=== PATIENT | female | born 1935 | race Caucasian/White ===

== ENCOUNTER 2017-09-09 09:59 | Outpatient (CLI) | payer MEDICARE, OTHER | END 2017-09-09 10:00 | disposition home or self-care (01) | LOC: BICMAMMO 09:59 | PROVIDERS: ATTEND Family Medicine | DX: Z12.31 Encounter for screening mammogram for malignant neoplasm of breast (principal) | CPT/HCPCS: 77063; 77067 ==

== ENCOUNTER 2018-04-25 11:53 | Outpatient (CLI) | payer MEDICARE ==
[2018-04-25 13:22] LABS: #Eosinphils 0.1 thou/uL (0.0-0.7); #Lymphocytes 1.6 thou/uL (1.20-3.40); #Monocytes 0.4 thou/uL (0.11-0.59); #Neutrophils 2.6 thou/uL (1.40-6.50); %Eosinophils 2.1 % (0.0-10.0); %Lymphocytes 33.5 % (21.0-51.0); %Monocytes 8.2 % (0.0-10.0); %Neutrophils 55.2 % (42.0-75.0); Hemoglobin 13.3 g/dL (12.0-16.0); Mean Corpuscular HGB CONC 33.4 g/dL (32.0-36.0); Mean Corpuscular Hemoglobin 30.9 pg (27.0-31.0); Mean Corpuscular Volume 92.5 fL (78.0-98.0); Platelet Count 222 thou/uL (130-400); RBC Distribution Width 11.7 % (11.5-14.5); Red Blood Cell (RBC) Count 4.29 mill/uL (4.20-5.40); White Blood Cell (WBC) Count 4.7 thou/uL (4.8-10.8)
--- NOTE | 2018-04-25 17:19 | EKG ---
Test Reason : Blood Pressure : / mmHG Vent. Rate : 068 BPM Atrial Rate : 068 BPM P-R Int : 172 ms QRS Dur : 084 ms QT Int : 410 ms P-R-T Axes : 081 079 057 degrees QTc Int : 435 ms Normal sinus rhythm Normal ECG No previous ECGs available Confirmed by MELITON GOULD, DR. Chapman ([id number]) on 04/25/2018 5:19:46 PM Referred By: DAISY Confirmed By:DR. Adela COELHO MD
== END 2018-04-25 11:54 | disposition home or self-care (01) ==
LOC: LABBT 11:53
PROVIDERS: ATTEND Orthopaedic Surgery Hand Surgery
DX: Z01.818 Encounter for other preprocedural examination (principal); M67.442 Ganglion, left hand
CPT/HCPCS: 85025; 93005; 93010

== ENCOUNTER 2018-05-02 06:30 | Day surgery (SDC) | payer MEDICARE ==
[2018-04-25 12:17] VITALS: BMI 25.2
[2018-05-02] MEDS ORDERED: CEFAZOLIN 2 GM/50 ML BAG ONE (07:31)
[2018-05-02] MEDS ORDERED: Bacitracin Zinc Ointment 30 gm TUBE ONE (08:30)
[2018-05-02] MEDS ORDERED: Betamet Acet/Betamet Na Ph 30 MG/5 ML VIAL ONE (08:30)
[2018-05-02] MEDS ORDERED: Bupivacaine PF 0.5% 30 ML VIAL ONE (08:30)
[2018-05-02] MEDS ORDERED: Sodium Chloride 0.9% 10 ML ONE (08:31)
[2018-05-02] MEDS ORDERED: Fentanyl 100 MCG/2 ML VIAL ONE (08:39)
[2018-05-02] MEDS ORDERED: ePHEDrine/0.9% NaCl/PF SYRINGE 50 mg/10 ml ONE (15:47)
[2018-05-02] MEDS ORDERED: Lidocaine 1% PF 5 ML VIAL ONE (15:47)
[2018-05-02] MEDS ORDERED: Ondansetron PF 4 MG/2 ML Vial ONE (15:47)
[2018-05-02] MEDS ORDERED: PROPOFOL 200 MG/20 ML VIAL ONE (15:47)
[2018-05-02] MEDS ORDERED: Dexamethasone 20 MG/5 ML VIAL ONE (15:47)
--- NOTE | 2018-05-03 17:50 | OP ---
DATE OF PROCEDURE: 05/02/2018 PREOPERATIVE DIAGNOSIS: Left palmar wrist ganglion, the palmar wrist ganglion is 1.5 cm long and approximately 1 cm wide egg-shaped cystic mass, eminent with the superficial radial artery stalk x2 going into the radiocarpal joint/radioscaphoid joint. COMPLICATIONS: None. TOURNIQUET TIME: 16 minutes. ESTIMATED BLOOD LOSS: 10 mL. PROCEDURES PERFORMED: 1. Arthrotomy with synovectomy, left palmar wrist. 2. Left wrist ganglion cyst excision, open. 3. Application of short arm splint, which was 3 inches x 8 inches, palmar wrist. C-ARM: None. INJECTIONS: Celestone, flip technique into joint once the synovectomy was accomplished, total of 3 mL and 20 mL of 0.5% Marcaine, 10 given prior to incision or before the surgery and 10 given after the wound was closed, then hemostasis was obtained. INDICATIONS: The patient had failed conservative treatment for ganglion and although it has been large and invisible, it is still palpable, painful, so surgery was indicated. DESCRIPTION OF PROCEDURE: After successful general LMA technique, the limb was prepped and draped. Time-out was done appropriately. We outlined the incision area, centered over the mass with zigzag type incision, each approximately 1.5 cm long. The patient had the injectable given. Here the incision was carried through the subcutaneous tissue, identified the mass, from radial artery and performed a vessel clip applied to where it appeared to be a branch and later on proved to be a branch that could ablate without being ligated. We the mass from the rest of the superficial radial artery, followed it where there were 2 stalks going into the joint and we then followed the stalk into the joint, opened the joint via a 6 mm arthrotomy and then held before synovectomy joint in order to eliminate all of the synovium and the stalk. We then lifted it out, sent it for pathology. We clipped a bleeder and then closed the wound once hemostasis obtained with no C-arm radiographic support indicated. Specimens sent to the lab. Tourniquet was deflated, hemostasis was obtained. We ligated once small branch of superficial radial artery, there was no main branch violation to include. Once that was accomplished, we had hemostasis excellent with tourniquet deflation at 16 minutes. We then closed the wound with interrupted 4-0 nylon in a mattress manner. Bulky dressing was applied. Remaining 10 mL of Marcaine was given and then a splint was applied. Job ID: [id number]
== END 2018-05-02 11:45 | disposition home or self-care (01) ==
LOC: SDC 06:30
PROVIDERS: ATTEND Orthopaedic Surgery Hand Surgery
PROC: 0LB60ZZ Excision of Left Lower Arm and Wrist Tendon, Open Approach (ICD-10-PCS; principal; 2018-05-02)
DX: M67.432 Ganglion, left wrist (principal); M18.12 Unilateral primary osteoarthritis of first carpometacarpal joint, left hand; Z79.82 Long term (current) use of aspirin; Z79.899 Other long term (current) drug therapy
CPT/HCPCS: 88304; J0131; J0702; J1100; J2001; J2405; J2704; J3010; J3490; S0020

== ENCOUNTER 2018-09-13 10:20 | Outpatient (CLI) | payer MEDICARE ==
--- NOTE | 2018-09-13 11:56 | MMO ---
Bilateral MAMMO Bilat Screen [facility]. CLINICAL HISTORY: Patient is 83 years old and is seen for screening. The patient has no family history of breast cancer. The patient has no personal history of cancer. The patient has a history of left Excisional Biopsy at age 43 - benign. VIEWS: The views performed were: bilateral craniocaudal with tomosynthesis and bilateral mediolateral oblique with tomosynthesis. FILMS COMPARED: The present examination has been compared to prior imaging studies performed at [facility] on 09/09/2017, and at [facility] on 08/19/2015 and 08/19/2016. MAMMOGRAM FINDINGS: There are scattered fibroglandular densities. Finding 1: There are stable benign appearing calcifications seen in both breasts. Finding 2: There are vascular calcifications seen in both breasts. There are no suspicious masses, suspicious calcifications, or new areas of architectural distortion. IMPRESSION: THERE IS NO MAMMOGRAPHIC EVIDENCE OF MALIGNANCY. A ROUTINE FOLLOW-UP MAMMOGRAM IN 1 YEAR IS RECOMMENDED. THE RESULTS OF THIS EXAM WERE SENT TO THE PATIENT. ACR BI-RADS Category 2 - Benign finding MAMMOGRAPHY NOTE: 1. A negative mammogram report should not delay a biopsy if a dominant of clinically suspicious mass is present. 2. Approximately 10% to 15% of breast cancers are not detected by mammography. 3. Adenosis and dense breasts may obscure an underlying neoplasm.
== END 2018-09-13 10:21 | disposition home or self-care (01) ==
LOC: BICMAMMO 10:20
PROVIDERS: ATTEND Family Medicine
DX: Z12.31 Encounter for screening mammogram for malignant neoplasm of breast (principal)
CPT/HCPCS: 77063; 77067

== ENCOUNTER 2022-02-24 09:06 | Outpatient (CLI) | payer MEDICARE | END 2022-02-24 09:07 | disposition home or self-care (01) | LOC: SCSMRI 09:06 | PROVIDERS: ATTEND Family Medicine | DX: F03.90 Unspecified dementia, unspecified severity, without behavioral disturbance, psychotic disturbance, mood disturbance, and anxiety (principal); R22.0 Localized swelling, mass and lump, head | CPT/HCPCS: 70553 ==

== ENCOUNTER 2022-08-11 13:30 | Outpatient (CLI) | payer OTHER | END 2022-08-11 13:31 | disposition home or self-care (01) | LOC: SCSMRI 13:30 | PROVIDERS: ATTEND Neurological Surgery | DX: D49.6 Neoplasm of unspecified behavior of brain (principal) | CPT/HCPCS: 70553; 82565 ==

== ENCOUNTER 2022-08-14 18:57 | Inpatient (IN) | payer OTHER ==
[2022-08-14] MEDS ORDERED: Ondansetron ODT 4 MG TAB PO PRN (20:54)
[2022-08-14] MEDS ORDERED: Acetaminophen 650 MG Suppository PR PRN (20:54)
[2022-08-14] MEDS ORDERED: Ondansetron PF 4 MG/2 ML Vial IVP PRN (20:54)
[2022-08-14 22:53] LABS: PTT 220.1 sec (22.9-36.1)
[2022-08-14] MEDS ORDERED: Heparin 10,000 UNITS/ 10 ML VIAL SLOW IVP SCH (23:00)
[2022-08-14] MEDS ORDERED: Heparin 25,000 units/D5W 500 ML IVPB SCH (23:00)
[2022-08-14 23:52] LABS: Hemoglobin 13.9 g/dL (12.0-16.0); Platelet Count 207 10x3/uL (130-400)
[2022-08-14] MEDS ORDERED: Dexamethasone 4 mg/ml Vial SLOW IVP SCH (23:59)
[2022-08-15 00:09] LABS: PTT 192.3 sec (22.9-36.1)
[2022-08-15 04:57] LABS: #Basophils 0.1 thou/uL (0.0-0.2); #Eosinphils 0.4 thou/uL (0.0-0.7); #Lymphocytes 0.8 thou/uL (1.20-3.40); #Monocytes 0.9 thou/uL (0.11-0.59); #Neutrophils 7.1 thou/uL (1.40-6.50); %Basophils 0.7 % (0.0-1.0); %Eosinophils 4.2 % (0.0-10.0); %Lymphocytes 8.2 % (21.0-51.0); %Neutrophils 76.9 % (42.0-75.0); Hemoglobin 13.3 g/dL (12.0-16.0); Mean Corpuscular HGB CONC 33.8 g/dL (32.0-36.0); Mean Corpuscular Hemoglobin 32.8 pg (27.0-31.0); Mean Corpuscular Volume 97.3 fl (78.0-98.0); Mean Platelet Volume 8.5 fL (7.4-10.4); Platelet Count 237 10x3/uL (130-400); RBC Distribution Width 12.8 % (11.5-14.5); Red Blood Cell (RBC) Count 4.05 mill/uL (4.20-5.40); White Blood Cell (WBC) Count 9.2 10x3/uL (4.8-10.8)
[2022-08-15 05:18] LABS: Anion Gap 11 mmol/L (10-20); BUN (Urea Nitrogen) 21 mg/dL (9.8-20.1); Calc. Creatinine Clearance 40 mL/min (70-130); Calcium 8.4 mg/dL (7.8-10.44); Carbon Dioxide 22 mmol/L (23-31); Chloride 99 mmol/L (98-107); Estimated GFR 62; Glucose 102 mg/dL (83-110); Potassium 4.2 mmol/L (3.5-5.1); Sodium 128 mmol/L (136-145)
[2022-08-15 13:51] LABS: Pleural Fluid, Protein 3.9 g/dL
[2022-08-15 13:58] LABS: Fluid, pH - Pleural Fld Greater than 7.50 (7.60 - 7.66)
[2022-08-15 16:11] LABS: Body Fluid Source Thoracentesis Fluid; Clarity Cloudy/Turbid (Clear); Tube # EDTA
[2022-08-15 16:15] LABS: RBC Count-Automated (BF) 40360 /cu.mm; WBC/Nucleated-Auto (BF) 3817 /cu.mm
[2022-08-15] MEDS ORDERED: Amlodipine 5 MG TAB PO SCH (16:30)
[2022-08-15 17:04] LABS: BF Segmented Neutrophils 3 %; Cell Count Non Hematic 97 %
[2022-08-16 08:28] LABS: #Eosinphils 0.3 thou/uL (0.0-0.7); #Lymphocytes 0.9 thou/uL (1.20-3.40); #Monocytes 0.9 thou/uL (0.11-0.59); #Neutrophils 7.4 thou/uL (1.40-6.50); %Basophils 0.4 % (0.0-1.0); %Eosinophils 2.7 % (0.0-10.0); %Lymphocytes 9.3 % (21.0-51.0); %Monocytes 9.1 % (0.0-10.0); %Neutrophils 78.5 % (42.0-75.0); Hemoglobin 14.2 g/dL (12.0-16.0); Mean Corpuscular HGB CONC 32.8 g/dL (32.0-36.0); Mean Corpuscular Hemoglobin 32.2 pg (27.0-31.0); Mean Platelet Volume 8.2 fL (7.4-10.4); Platelet Count 262 10x3/uL (130-400); RBC Distribution Width 12.9 % (11.5-14.5); Red Blood Cell (RBC) Count 4.42 mill/uL (4.20-5.40); White Blood Cell (WBC) Count 9.4 10x3/uL (4.8-10.8)
[2022-08-16] MEDS: Acetaminophen 325 MG TAB PO PRN (08:44)
[2022-08-16 08:47] LABS: ALT (SGPT) 52 U/L (8-55); AST (SGOT) 94 U/L (5-34); Albumin 2.7 g/dL (3.4-4.8); Alkaline Phosphatase 840 U/L (40-110); Anion Gap 14 mmol/L (10-20); BUN (Urea Nitrogen) 16 mg/dL (9.8-20.1); Bilirubin, Total 1.4 mg/dL (0.2-1.2); Calc. Creatinine Clearance 43 mL/min (70-130); Calcium 8.7 mg/dL (7.8-10.44); Carbon Dioxide 21 mmol/L (23-31); Chloride 99 mmol/L (98-107); Estimated GFR 67; Globulin 3.6 g/dL (2.4-3.5); Glucose 96 mg/dL (83-110); Potassium 3.9 mmol/L (3.5-5.1); Protein, Total 6.3 g/dL (5.8-8.1); Sodium 130 mmol/L (136-145)
[2022-08-16] MEDS ORDERED: Magnevist 469MG/ML 20 ML VIAL ONE (13:34)
[2022-08-16] MEDS ORDERED: hydrALAZINE 25 MG TAB PO SCH (17:30)
[2022-08-16 23:32] LABS: Hemoglobin 14.6 g/dL (12.0-16.0); Platelet Count 292 10x3/uL (130-400)
[2022-08-17 00:13] LABS: HBCM Index 0.08 S/CO (0-0.79); HBSAg Index 0.23 S/CO (0-0.99); Hep A IgM AB Non-Reactive (NonReactive); Hep A IgM S/CO 0.18 S/CO (0-0.79); Hep B Surf Ag Non-Reactive S/CO (NonReactive); Hep C IgG Ab Non-Reactive (NonReactive); Hep C Index 0.54 S/CO (0-0.79); Hepatitis B Core IgM Abs Non-Reactive (NonReactive)
[2022-08-17 06:28] LABS: Iron 43 ug/dL (50-170); Iron Binding Capacity, Total 185 mcg/dL (265-497)
[2022-08-17] MEDS: Amlodipine 5 MG TAB PO SCH (08:19)
[2022-08-17 16:18] LABS: ANA Symphony (Qualitative) POSITIVE (Negative); ANA Symphony (Quantitative) Greater than 32.0 Ratio (< 0.7 Negative); CENP IgG Antibody 0.8 EliAU/mL (<7 Negative); EliA Vaculitis New Method **** NEW METHOD ****; Jo-1 IgG Antibody 0.4 EliAU/mL (<7 Negative); Mitochondrial Ab 4.5 U/mL (<4 Negative); RNP70 IgG Antibody 2.5 EliAU/mL (<7 Negative); SSA/Ro IgG Antibody Greater than 240.0 EliAU/mL (<7 Negative); SSB/La IgG Antibody 2.9 EliAU/mL (<7 Negative); Scleroderma-70 IgG Antibody 1.4 EliAU/mL (<7 Negative); Smith D IgG Antibody 4.6 EliAU/mL (<7 Negative); dsDNA IgG Antibody 1.7 IU/mL (<10 Negative)
[2022-08-18] MEDS ORDERED: Electrolyte Replacement Protocol 1 EACH FS SCH ×2 (00:45→02:30)
[2022-08-18] MEDS ORDERED: Sodium Chloride 0.9% 250 ML IV SCH (02:30)
[2022-08-18] MEDS ORDERED: Sodium Chloride 0.9% 250 ML 250 ML IV SCH (03:00)
[2022-08-18 05:33] LABS: #Eosinphils 0.3 thou/uL (0.0-0.7); #Lymphocytes 0.7 thou/uL (1.20-3.40); %Basophils 0.4 % (0.0-1.0); %Eosinophils 2.7 % (0.0-10.0); %Lymphocytes 6.6 % (21.0-51.0); %Monocytes 10.2 % (0.0-10.0); Hemoglobin 13.9 g/dL (12.0-16.0); Mean Corpuscular HGB CONC 34.6 g/dL (32.0-36.0); Mean Corpuscular Hemoglobin 33.5 pg (27.0-31.0); Mean Corpuscular Volume 96.8 fl (78.0-98.0); Mean Platelet Volume 8.1 fL (7.4-10.4); Platelet Count 267 10x3/uL (130-400); RBC Distribution Width 13.1 % (11.5-14.5); Red Blood Cell (RBC) Count 4.14 mill/uL (4.20-5.40); White Blood Cell (WBC) Count 9.9 10x3/uL (4.8-10.8)
[2022-08-18 06:01] LABS: ALT (SGPT) 51 U/L (8-55); AST (SGOT) 99 U/L (5-34); Albumin 2.6 g/dL (3.4-4.8); Alkaline Phosphatase 831 U/L (40-110); Anion Gap 9 mmol/L (10-20); BUN (Urea Nitrogen) 16 mg/dL (9.8-20.1); Bilirubin, Total 0.9 mg/dL (0.2-1.2); Calc. Creatinine Clearance 45 mL/min (70-130); Calcium 8.4 mg/dL (7.8-10.44); Carbon Dioxide 23 mmol/L (23-31); Chloride 102 mmol/L (98-107); Estimated GFR 73; Globulin 3.5 g/dL (2.4-3.5); Glucose 120 mg/dL (83-110); Magnesium 1.6 mg/dL (1.6-2.6); Potassium 4.1 mmol/L (3.5-5.1); Protein, Total 6.1 g/dL (5.8-8.1); Sodium 130 mmol/L (136-145)
[2022-08-18] MEDS ORDERED: Magnesium 2 GM/50 ML(in water) 2 GM in Premix Bag 1 BAG IVPB SCH (08:00)
[2022-08-18] MEDS: Amlodipine 5 MG TAB PO SCH (08:16)
[2022-08-18] MEDS: Acetaminophen 325 MG TAB PO PRN (08:17)
[2022-08-18 23:04] LABS: Hemoglobin 13.9 g/dL (12.0-16.0); Platelet Count 284 10x3/uL (130-400)
[2022-08-19 05:33] LABS: #Basophils 0.1 thou/uL (0.0-0.2); #Eosinphils 0.4 thou/uL (0.0-0.7); #Lymphocytes 0.7 thou/uL (1.20-3.40); #Monocytes 1.1 thou/uL (0.11-0.59); #Neutrophils 8.1 thou/uL (1.40-6.50); %Basophils 0.7 % (0.0-1.0); %Eosinophils 3.6 % (0.0-10.0); %Lymphocytes 6.5 % (21.0-51.0); %Monocytes 10.6 % (0.0-10.0); %Neutrophils 78.7 % (42.0-75.0); Hemoglobin 13.5 g/dL (12.0-16.0); Mean Corpuscular HGB CONC 32.1 g/dL (32.0-36.0); Mean Corpuscular Hemoglobin 31.2 pg (27.0-31.0); Mean Corpuscular Volume 97.2 fl (78.0-98.0); Mean Platelet Volume 8.2 fL (7.4-10.4); Platelet Count 278 10x3/uL (130-400); Red Blood Cell (RBC) Count 4.33 mill/uL (4.20-5.40); White Blood Cell (WBC) Count 10.2 10x3/uL (4.8-10.8)
[2022-08-19 05:55] LABS: ALT (SGPT) 61 U/L (8-55); AST (SGOT) 118 U/L (5-34); Albumin 2.6 g/dL (3.4-4.8); Alkaline Phosphatase 919 U/L (40-110); Anion Gap 9 mmol/L (10-20); BUN (Urea Nitrogen) 15 mg/dL (9.8-20.1); Bilirubin, Total 1.1 mg/dL (0.2-1.2); Calc. Creatinine Clearance 46 mL/min (70-130); Calcium 8.2 mg/dL (7.8-10.44); Carbon Dioxide 24 mmol/L (23-31); Chloride 100 mmol/L (98-107); Estimated GFR 74; Globulin 3.4 g/dL (2.4-3.5); Glucose 116 mg/dL (83-110); Sodium 129 mmol/L (136-145)
[2022-08-19] MEDS: Amlodipine 5 MG TAB PO SCH (10:26)
[2022-08-20 06:13] LABS: #Basophils 0.1 thou/uL (0.0-0.2); #Eosinphils 0.3 thou/uL (0.0-0.7); #Lymphocytes 0.8 thou/uL (1.20-3.40); #Neutrophils 7.2 thou/uL (1.40-6.50); %Basophils 0.6 % (0.0-1.0); %Lymphocytes 8.4 % (21.0-51.0); %Monocytes 10.8 % (0.0-10.0); %Neutrophils 77.2 % (42.0-75.0); Hemoglobin 13.5 g/dL (12.0-16.0); Mean Corpuscular HGB CONC 33.6 g/dL (32.0-36.0); Mean Corpuscular Hemoglobin 32.8 pg (27.0-31.0); Mean Corpuscular Volume 97.6 fl (78.0-98.0); Mean Platelet Volume 8.1 fL (7.4-10.4); Platelet Count 266 10x3/uL (130-400); RBC Distribution Width 12.9 % (11.5-14.5); Red Blood Cell (RBC) Count 4.13 mill/uL (4.20-5.40); White Blood Cell (WBC) Count 9.3 10x3/uL (4.8-10.8)
[2022-08-20 06:33] LABS: ALT (SGPT) 64 U/L (8-55); AST (SGOT) 116 U/L (5-34); Albumin 2.3 g/dL (3.4-4.8); Alkaline Phosphatase 949 U/L (40-110); Anion Gap 11 mmol/L (10-20); BUN (Urea Nitrogen) 15 mg/dL (9.8-20.1); Bilirubin, Total 1.4 mg/dL (0.2-1.2); Calc. Creatinine Clearance 47 mL/min (70-130); Calcium 8.2 mg/dL (7.8-10.44); Carbon Dioxide 23 mmol/L (23-31); Chloride 100 mmol/L (98-107); Estimated GFR 76; Globulin 3.5 g/dL (2.4-3.5); Glucose 110 mg/dL (83-110); Potassium 3.8 mmol/L (3.5-5.1); Protein, Total 5.8 g/dL (5.8-8.1); Sodium 130 mmol/L (136-145)
[2022-08-20] MEDS: Amlodipine 5 MG TAB PO SCH (09:23)
[2022-08-20] MEDS: Acetaminophen 325 MG TAB PO PRN (16:04)
[2022-08-20] MEDS: Apixaban 5 MG TAB PO SCH (20:29)
[2022-08-20] MEDS ORDERED: Apixaban 5 MG TAB PO SCH (21:00)
[2022-08-20 23:27] LABS: Hemoglobin 13.2 g/dL (12.0-16.0); Platelet Count 290 10x3/uL (130-400)
[2022-08-21 06:10] LABS: #Eosinphils 0.4 thou/uL (0.0-0.7); #Lymphocytes 0.8 thou/uL (1.20-3.40); #Monocytes 0.9 thou/uL (0.11-0.59); #Neutrophils 6.7 thou/uL (1.40-6.50); %Basophils 0.5 % (0.0-1.0); %Lymphocytes 8.8 % (21.0-51.0); %Neutrophils 76.7 % (42.0-75.0); Hemoglobin 13.6 g/dL (12.0-16.0); Mean Corpuscular HGB CONC 34.4 g/dL (32.0-36.0); Mean Corpuscular Hemoglobin 33.3 pg (27.0-31.0); Mean Corpuscular Volume 96.9 fl (78.0-98.0); Mean Platelet Volume 8.5 fL (7.4-10.4); Platelet Count 284 10x3/uL (130-400); RBC Distribution Width 12.9 % (11.5-14.5); Red Blood Cell (RBC) Count 4.06 mill/uL (4.20-5.40); White Blood Cell (WBC) Count 8.7 10x3/uL (4.8-10.8)
[2022-08-21 06:25] LABS: ALT (SGPT) 64 U/L (8-55); AST (SGOT) 117 U/L (5-34); Albumin 2.2 g/dL (3.4-4.8); Alkaline Phosphatase 907 U/L (40-110); Anion Gap 11 mmol/L (10-20); BUN (Urea Nitrogen) 15 mg/dL (9.8-20.1); Bilirubin, Total 1.5 mg/dL (0.2-1.2); Calc. Creatinine Clearance 46 mL/min (70-130); Calcium 8.4 mg/dL (7.8-10.44); Carbon Dioxide 24 mmol/L (23-31); Chloride 98 mmol/L (98-107); Estimated GFR 75; Globulin 3.8 g/dL (2.4-3.5); Glucose 100 mg/dL (83-110); Sodium 129 mmol/L (136-145)
[2022-08-21] MEDS ORDERED: Acetaminophen 500 MG TAB PO PRN (08:17)
[2022-08-21] MEDS ORDERED: oxyCODONE 5 MG TAB PO PRN (08:17)
[2022-08-21] MEDS: Amlodipine 5 MG TAB PO SCH (08:36)
[2022-08-21] MEDS: Apixaban 5 MG TAB PO SCH ×2 (08:36→19:43)
[2022-08-22] MEDS: Apixaban 5 MG TAB PO SCH ×2 (08:33→20:27)
[2022-08-22] MEDS: Amlodipine 5 MG TAB PO SCH (08:33)
[2022-08-23 00:37] LABS: Hemoglobin 13.8 g/dL (12.0-16.0); Platelet Count 280 10x3/uL (130-400)
[2022-08-23] MEDS: Amlodipine 5 MG TAB PO SCH (09:08)
[2022-08-23] MEDS: Apixaban 5 MG TAB PO SCH (09:08)
[2022-08-23 16:45] VITALS: BP 157/77; TEMP 97.8
== END 2022-08-23 17:00 | disposition hospice, inpatient (51) | DRG 374 ==
LOC: UNDOADMIN 20:30 → 2NO 20:30 → MSONC 08-16 16:54
PROVIDERS: ADMIT Hospitalist; ATTEND Hospitalist
PROC: 0W993ZZ Drainage of Right Pleural Cavity, Percutaneous Approach (ICD-10-PCS; principal; 2022-08-15)
DX: C26.9 Malignant neoplasm of ill-defined sites within the digestive system (principal); Z66 Do not resuscitate; Z51.5 Encounter for palliative care; Z20.822 Contact with and (suspected) exposure to COVID-19; G93.6 Cerebral edema; I26.99 Other pulmonary embolism without acute cor pulmonale; J91.0 Malignant pleural effusion; R18.8 Other ascites; E87.1 Hypo-osmolality and hyponatremia; I82.411 Acute embolism and thrombosis of right femoral vein; N17.9 Acute kidney failure, unspecified; C79.31 Secondary malignant neoplasm of brain; Z96.659 Presence of unspecified artificial knee joint; Z96.619 Presence of unspecified artificial shoulder joint; R41.3 Other amnesia; D63.8 Anemia in other chronic diseases classified elsewhere; K76.89 Other specified diseases of liver; E80.6 Other disorders of bilirubin metabolism; Z79.899 Other long term (current) drug therapy
CPT/HCPCS: 36415; 71045; 74183; 76705; 80048; 80053; 80074; 82103; 82105; 82150; 82390; 82728; 82945; 83516; 83540; 83550; 83615; 83735; 83986; 84157; 84478; 85014; 85018; 85025; 85049; 85060; 85730; 86015; 86038; 86225; 86235; 87070; 87116; 87205; 87206; 88112; 88305; 88312; 88341; 88342; 89051; 93005; 93010; 93306; A9579; J1644; J1650; J3475; J7050; U0003; U0005